=== PATIENT | female | born 1990 | race African-American/Black ===

== ENCOUNTER → 2023-06-11 | Outpatient (CLI) | payer MEDICARE ==
[2023-06-11 18:44] LABS: Basophils # (A) 0.04 X 10*3/uL (0.00-0.10); Basophils % (A) 0.4 %; Eosinophils # (A) 0.15 X 10*3/uL (0.04-0.35); Eosinophils % (A) 1.4 %; HCT 32.1 % (37.2-46.3); HGB 11.1 g/dL (12.0-15.0); Lymphocytes # (A) 2.89 X 10*3/uL (0.90-5.00); Lymphocytes % (A) 27.6 %; MCH 28.8 pg (27.0-32.0); MCHC 34.6 g/dL (32.0-37.0); MCV 83.2 FL (80.0-97.0); Mean Platelet Volume 11.9 FL (9.5-12.2); Monocytes # (A) 0.76 X 10*3/uL (0.20-1.00); Monocytes % (A) 7.2 %; NRBC Per 100 WBC 0 X 10*3/uL (0.00-0.01); Neutrophils # (A) 6.62 X 10*3/uL (1.80-7.70); Neutrophils % (A) 63.1 %; Platelet Count 208 X 10*3/uL (140-440); RBC 3.86 X 10*6/uL (4.10-5.20); RDW 14.7 % (11.5-14.5); WBC 10.49 X 10*3/uL (4.50-10.00)
[2023-06-11 19:09] LABS: % Iron Saturation 14.51 (12.00-45.00); Glucose 104 mg/dL (70-110); Iron 55 UG/DL (50-170); Total Iron Binding Capacity 379 UG/DL (228-460)
[2023-06-11 19:10] LABS: ALT 54 U/L (8-44); AST 25 U/L (13-35); Albumin 4.2 g/dL (3.8-4.9); Albumin/Globulin Ratio 1.31 Ratio (1.60-3.17); Alkaline Phosphatase 80 U/L (41-126); Calcium 10.2 mg/dL (8.7-10.3); Chloride 100 mmol/L (96-109); Ferritin 66.8 ng/mL (10.0-291.0); Globulin 3.2 g/dL (1.6-3.3); Sodium 134 mmol/L (135-145); T4, Free (Free Thyroxine) 2.26 ng/dL (0.80-1.80); Total Bilirubin 0.2 mg/dL (0.3-1.2); Total Protein 7.4 g/dL (6.2-8.2)
== END | disposition home or self-care (01) ==
LOC: LABWHC1 11:50
PROVIDERS: ATTEND Family Medicine
DX: Z33.1 Pregnant state, incidental (principal); N91.2 Amenorrhea, unspecified; E01.0 Iodine-deficiency related diffuse (endemic) goiter; E55.9 Vitamin D deficiency, unspecified; R53.81 Other malaise; R53.83 Other fatigue
CPT/HCPCS: 36415; 80053; 82306; 82728; 83540; 83550; 84439; 84443; 84702; 85025

== ENCOUNTER 2023-06-22 18:58 | Emergency (ER) | payer MEDICARE ==
[2023-06-22 20:06] LABS: Basophils % (A) 0 %; Eosinophils # (A) 0.4 k/uL (0-0.7); Eosinophils % (A) 3 %; HCT 36.5 % (34.0-46.0); HGB 12.1 gm/dL (11.4-16.0); Lymphocytes # (A) 2.5 k/uL (1.0-4.8); Lymphocytes % (A) 20 %; MCH 27.5 pg (25.0-35.0); MCHC 33.2 g/dL (31.0-37.0); MCV 82.9 fL (80.0-100.0); Mean Platelet Volume 9.7; Monocytes # (A) 0.5 k/uL (0-1.0); Monocytes % (A) 4 %; Neutrophils # (A) 9.1 k/uL (1.3-7.7); Neutrophils % (A) 72 %; Platelet Count 211 k/uL (150-450); RDW 13.6 % (11.5-15.5); WBC 12.6 k/uL (3.8-10.6)
[2023-06-22] MEDS: SODIUM CHLORIDE 0.9% 2,000 ML IV STA (20:08)
[2023-06-22 20:12] LABS: Appearance,Urine Clear (Clear); Bilirubin,Urine Negative (Negative); Blood,Urine Negative (Negative); Color,Urine Colorless; Glucose,Urine (UA) Negative (Negative); Ketones,Urine 1+ (Negative); Leukocyte Esterase,Urine Negative (Negative); Nitrite,Urine Negative (Negative); PH, Urine 6.5 (5.0-8.0); Protein,Urine Negative (Negative); Specific Gravity,Urine 1.008 (1.001-1.035); Urobilinogen,Urine <2.0 mg/dL (<2.0)
[2023-06-22 20:16] LABS: ALT 36 U/L (4-34); AST 24 U/L (14-36); African American GFR (CKD) >90 (>60 ml/min/1.73 sqM); Albumin 4.3 g/dL (3.5-5.0); Alkaline Phosphatase 80 U/L (38-126); Amylase 70 U/L (30-110); Anion Gap 10 mmol/L; Blood Urea Nitrogen 5 mg/dL (7-17); Calcium 9.7 mg/dL (8.4-10.2); Carbon Dioxide 21 mmol/L (22-30); Chloride 105 mmol/L (98-107); Glucose 97 mg/dL (74-99); Lipase 35 U/L (23-300); Magnesium 1.6 mg/dL (1.6-2.3); Non-African American GFR(CKD) >90 (>60 ml/min/1.73 sqM); Potassium 3.7 mmol/L (3.5-5.1); Sodium 136 mmol/L (137-145); Total Bilirubin 0.5 mg/dL (0.2-1.3)
[2023-06-22] MEDS: diphenhydrAMINE 50 MG/ML 1 ML VIAL IVP STA (20:41)
[2023-06-22] MEDS: METOCLOPRAMIDE 5 MG/ML 2 ML VIAL IVP STA (20:42)
[2023-06-22] MEDS: ACETAMINOPHEN IV (For NPO) 1,000 MG in EMPTY BAG 1 BAG IVPB STA (20:43)
--- NOTE | 2023-06-22 20:44 | US ---
EXAMINATION TYPE: US OB <= 14 wk twins DATE OF EXAM: 06/22/2023 COMPARISON: NONE CLINICAL INDICATION: Female, 32 years old with history of Abdominal pain in ; Pt states very nauseas and cannot keep anything down. Dehydrated and headache. . Hx of ectopic in 2010 EXAM PERFORMED: Transabdominal (TA) EXAM MEASUREMENTS: GESTATIONAL AGE / DATING Physician Established: Not yet established Dates by LMP: LMP unknown Dates by First Scan: No previous this is first scan ( Dates by Current Scan for Baby A: (12 weeks/0 days) EDC: 01/04/24 Dates by Current Scan for Baby B: (12 weeks/0 days) EDC: 01/04/24 MATERNAL ANATOMY Uterus: 11.6 x 9.3 x 8.1cm. Hypoechoic area seen in fundus measuring 2.9 x 3.6 x 2.7cm Right Ovary: 5.3 x 3.3 x 3.1cm. Cyst seen measuring 4.1 x 3.7 x 3.1cm Left Ovary: 2.2 x 1.6 x 1.4cm Post CDS / Adnexa: wnl Presence of free fluid: No Presence of corpus luteal cyst: No Presence of subchorionic bleed: No Presence of two separate gestational sacs: Yes GESTATION / SURVEY TWIN A CRL: 5.21cm (12wks/0days) MSD: Not measured Yolk Sac (normal less than 6mm): Not seen, placenta forming Heart Rate: 160 bpm Rhythm: Normal IUP: Viable IUP TWIN B CRL: 5.27cm (12wks/0days) MSD: Not measured Yolk Sac (normal less than 6mm): Not seen, placenta forming Heart Rate: 165 bpm Rhythm: Normal IUP: Viable IUP Date of LMP: unknown Beta HcG (if available): pending 2 live fetuses seen both measuring 12 weeks 0 days IMPRESSION: 2 live fetuses , both measuring 12 weeks 0 days. Consider further imaging dedicated imaging [address].
--- NOTE | 2023-06-22 21:02 | ED ---
Nausea/Vomiting/Diarrhea HPI - General Chief complaint: Nausea/Vomiting/Diarrhea Stated complaint: Nausea Time Seen by Provider: 06/22/23 19:27 Source: patient, RN notes reviewed Mode of arrival: ambulatory Limitations: no limitations - History of Present Illness Initial comments: This is a 32-year-old female who presents to the emergency department for nausea, vomiting, and headaches. Patient is approximately 12 weeks and . States that for the last several weeks she has been having persistent nausea and vomiting and is unable to keep anything down. In prior pregnancies she has done well with Zofran and [id number]-[id number] medication, however she just moved here from [place] and is waiting for her first [facility] appointment in the next couple of weeks. She has been trying [id number] regimens without any relief in symptoms. Over the last several days she has also started to develop a headache, which she believes may be from dehydration. Also reports lower abdominal pain. Denies any vaginal bleeding. MD complaint: nausea, vomiting, abdominal pain - Related Data Previous Rx's Medication Instructions Recorded Metoclopramide [Reglan] 10 mg PO Q6H PRN #30 tab 06/22/23 Ondansetron Odt [Zofran Odt] 4 mg PO Q8HR PRN #30 tab 06/22/23 Allergies Allergy/AdvReac Type Severity Reaction Status Date / Time promethazine [From Phenergan] Allergy Rash/Hives Verified 06/23/23 08:57 pineapple AdvReac Nausea & Verified 06/23/23 08:57 Vomiting Review of Systems ROS Statement: Those systems with pertinent positive or pertinent negative responses have been documented in the HPI. ROS Other: All systems not noted in ROS Statement are negative. Past Medical History Past Medical History: Thyroid Disorder History of Any Multi-Drug Resistant Organisms: None Reported Additional Past Surgical History / Comment(s): Ectopic 2010 Smoking Status: Never smoker Past Alcohol Use History: None Reported Past Drug Use History: None Reported General Exam Limitations: no limitations General appearance: alert, in no apparent distress Head exam: Present: atraumatic, normocephalic, normal inspection Respiratory exam: Present: normal lung sounds bilaterally. Absent: respiratory distress, wheezes, rales, rhonchi, stridor Cardiovascular Exam: Present: regular rate, normal rhythm, normal heart sounds. Absent: systolic murmur, diastolic murmur, rubs, gallop, clicks Neurological exam: Present: alert, oriented X3, CN II-XII intact Psychiatric exam: Present: normal affect, normal mood Skin exam: Present: warm, dry, intact, normal color. Absent: rash Course Vital Signs 06/22/23 06/22/23 19:07 23:13 Temperature 98 F 98.7 F Pulse Rate 89 80 Respiratory 22 18 Rate Blood Pressure 148/88 123/77 O2 Sat by Pulse 100 100 Oximetry Medical Decision Making - Medical Decision Making This is a 32 year old female who presents to the emergency department for nausea and vomiting in . Was pt. sent in by a medical professional or institution? @ -No Did you speak to anyone other than the patient for history? @ -No Did you review nursing and triage notes? @ -Yes, and I agree, it is accurate with regards to the patient's symptoms. Were old charts reviewed? @ -No Differential Diagnosis? @ -Differential Nausea and Vomiting: Gastroenteritis, cholecystitis, appendicitis, pancreatitis, migraine, benign positional vertigo, food borne illness, pyelonephritis, irritable bowel syndrome, influenza, Covid, GERD, incarcerated hernia, intestinal obstruction, this is not meant to be an all-inclusive list. EKG interpreted by me (3pts min.)? @ -Not obtained X-rays interpreted by me (1pt min.)? @ -Not obtained CT interpreted by me (1pt min.)? @ -Not obtained U/S interpreted by me (1pt. min.)? @ -OB US obtained. My interpretation identifies 2 live IUPs What testing was considered but not performed? (CT, X-rays, U/S, labs)? Why? @ -None What meds were considered but not given? Why? @ -None Did you discuss the management of the patient with other professionals? @ -No Did you reconcile home meds? @ -No Was smoking cessation discussed for >3mins.? @ -No Was critical care preformed (if so, how long)? @ -No Were there social determinants of health that impacted care today? How? (Homelessness, low income, unemployed, alcoholism, drug addiction, transportation, low edu. Level, literacy, decrease access to med. care, detention, rehab)? @ -No Was there de-escalation of care discussed even if they declined? (Discuss DNR or withdrawal of care, Hospice)? @ -No What co-morbidities impacted this encounter? (DM, HTN, Smoking, COPD, CAD, Cancer, CVA, Hep., AIDS, mental health diagnosis, sleep apnea, morbid obesity)? @ - Was patient admitted / discharged? @ -Discharged. Lab work demonstrates mild leukocytosis and was otherwise unremarkable. Urinalysis negative for signs of infection. ultrasound obtained demonstrating 2 live fetuses, both measuring 12 weeks. Findings reviewed with the patient. She was treated with IV fluids, Reglan, Ofirmev, Benadryl, and Caffeine for management of the headache and nausea. She had significant improvement in the headache and initial improvement in the nausea. Nausea did start to return afterwards and she was given a dose of Zofran. She had persistent improvement following the Zofran. She was able to tolerate oral intake afterwards and felt comfortable with discharge home at that time. Prescription for both Reglan and Zofran provided with dosing instructions reviewed in the event one of them is not effective. She is advised to slowly advance her diet as tolerated and remain well-hydrated. She will otherwise follow-up with her [facility]. Undiagnosed new problem with uncertain prognosis? @ -None Drug Therapy requiring intensive monitoring for toxicity (Heparin, Nitro, Insulin, Cardizem)? @ -None Were any procedures done? @ -None Diagnosis/symptom? @ -Nausea and vomiting, headache Acute, or Chronic, or Acute on Chronic? @ -Acute Uncomplicated (without systemic symptoms) or Complicated (systemic symptoms)? @ -Uncomplicated Side effects of treatment? @ -None Exacerbation, Progression, or Severe Exacerbation] @ -Not applicable Poses a threat to life or bodily function? @ -No Return precautions reviewed in depth, the patient is instructed to return to the emergency department with any new, worsening, or concerning symptoms. Patient verbalized understanding. This case was discussed in detail with the attending ED physician, Dr. Merchant. Presentation, findings, and treatment plan discussed in detail as well. - Lab Data Result diagrams: 06/22/23 19:59 06/22/23 19:59 Lab Results 06/22/23 06/22/23 06/22/23 Range/Units 19:59 19:59 19:59 WBC 12.6 H (3.8-10.6) k/uL RBC 4.40 (3.80-5.40) m/uL Hgb 12.1 (11.4-16.0) gm/dL Hct 36.5 (34.0-46.0) % MCV 82.9 (80.0-100.0) fL MCH 27.5 (25.0-35.0) pg MCHC 33.2 (31.0-37.0) g/dL RDW 13.6 (11.5-15.5) % Plt Count 211 (150-450) k/uL MPV 9.7 Neutrophils % 72 % Lymphocytes % 20 % Monocytes % 4 % Eosinophils % 3 % Basophils % 0 % Neutrophils # 9.1 H (1.3-7.7) k/uL Lymphocytes # 2.5 (1.0-4.8) k/uL Monocytes # 0.5 (0-1.0) k/uL Eosinophils # 0.4 (0-0.7) k/uL Basophils # 0.0 (0-0.2) k/uL Sodium 136 L (137-145) mmol/L Potassium 3.7 (3.5-5.1) mmol/L Chloride 105 (98-107) mmol/L Carbon Dioxide 21 L (22-30) mmol/L Anion Gap 10 mmol/L BUN 5 L (7-17) mg/dL Creatinine 0.36 L (0.52-1.04) mg/dL Est GFR (CKD-EPI)AfAm >90 (>60 ml/min/1.73 sqM) Est GFR (CKD-EPI)NonAf >90 (>60 ml/min/1.73 sqM) Glucose 97 (74-99) mg/dL Calcium 9.7 (8.4-10.2) mg/dL Magnesium 1.6 (1.6-2.3) mg/dL Total Bilirubin 0.5 (0.2-1.3) mg/dL AST 24 (14-36) U/L ALT 36 H (4-34) U/L Alkaline Phosphatase 80 (38-126) U/L Total Protein 8.0 (6.3-8.2) g/dL Albumin 4.3 (3.5-5.0) g/dL Amylase 70 (30-110) U/L Lipase 35 (23-300) U/L HCG, Quant >723842.0 mIU/mL Urine Color Colorless Urine Appearance Clear (Clear) Urine pH 6.5 (5.0-8.0) Ur Specific [place] 1.008 (1.001-1.035) Urine Protein Negative (Negative) Urine Glucose (UA) Negative (Negative) Urine Ketones 1+ H (Negative) Urine Blood Negative (Negative) Urine Nitrite Negative (Negative) Urine Bilirubin Negative (Negative) Urine Urobilinogen <2.0 (<2.0) mg/dL Ur Leukocyte Esterase Negative (Negative) - Radiology Data Radiology results: report reviewed, image reviewed Disposition Clinical Impression: Nausea and vomiting, Headache, Abdominal pain during Disposition: HOME SELF-CARE Instructions (If sedation given, give patient instructions): Acute Nausea and Vomiting (ED) Additional Instructions: Return to the emergency department with any new, worsening, or concerning symptoms. You can take the Zofran up to every 8 hours and the Reglan up to every 6 hours as needed for nausea and vomiting. You can take Tylenol and caffeine for management of the headaches. Slowly advance your diet as tolerated and remain well-hydrated. Follow up with your [facility]. Prescriptions: Metoclopramide [Reglan] 10 mg PO Q6H PRN #30 tab PRN Reason: Nausea And Vomiting Ondansetron Odt [Zofran Odt] 4 mg PO Q8HR PRN #30 tab PRN Reason: Nausea And Vomiting Is patient prescribed a controlled substance at d/c from ED?: No Referrals: Tadeo Bailey III, MD [Primary Care Provider] - 1-2 days Time of Disposition: 23:00
[2023-06-22 21:34] LABS: HCG,Quantitative Serum >225000.0 mIU/mL
[2023-06-22] MEDS: CAFFEINE SODIUM BENZOATE IVPB ONE (21:36)
[2023-06-22] MEDS: SODIUM CHLORIDE 0.9% IVPB ONE (21:36)
[2023-06-22] MEDS: ONDANSETRON 4 MG/2 ML VIAL IVP STA (21:55)
[2023-06-22] MEDS: ONDANSETRON 4 MG ODT STARTER PACK 2 TAB BTL PO STA (22:31)
[2023-06-22 23:44] VITALS: BP 123/77; PULSE 80; RESP 18; TEMP 98.7
== END 2023-06-22 23:34 | disposition home or self-care (01) ==
LOC: EC 18:58
DX: O21.9 Vomiting of pregnancy, unspecified (principal); O26.891 Other specified pregnancy related conditions, first trimester; O99.891 Other specified diseases and conditions complicating pregnancy; R51.9 Headache, unspecified; R10.30 Lower abdominal pain, unspecified; Z88.8 Allergy status to other drugs, medicaments and biological substances; Z91.018 Allergy to other foods; Z3A.12 12 weeks gestation of pregnancy
CPT/HCPCS: 36415; 80053; 82150; 83690; 83735; 85025; 81003; 84702; 76801; 76802; 99284; 96365; 96366; 96375 ×4; 96361; J1200; J2765; J2405; J0131; S0119

== ENCOUNTER 2023-06-23 08:52 | Emergency (ER) | payer MEDICARE ==
--- NOTE | 2023-06-23 09:32 | ED ---
General Adult HPI - General Chief complaint: Vaginal Bleeding Stated complaint: poss Miscarriage, 12wks w/Twins Time Seen by Provider: 06/23/23 09:06 Source: patient, RN notes reviewed, old records reviewed Mode of arrival: ambulatory Limitations: no limitations - History of Present Illness Initial comments: Patient is a pleasant 32-year-old female presenting to the emergency department with concerns for vaginal bleeding. Patient was in the emergency department yesterday with nausea and vomiting. Patient states that did improve with medications and is not nauseated at this time. Patient states this morning she had some mild cramping. Following this she had a large amount of blood while using the toilet from the vaginal region. Patient states this has again improved and now is only minimal spotting. Patient states she also has continued minimal cramping at this time. No history of similar symptoms previously. Patient is 12 weeks gravid with twin gestation. - Related Data Previous Rx's Medication Instructions Recorded Metoclopramide [Reglan] 10 mg PO Q6H PRN #30 tab 06/22/23 Ondansetron Odt [Zofran Odt] 4 mg PO Q8HR PRN #30 tab 06/22/23 Allergies Allergy/AdvReac Type Severity Reaction Status Date / Time promethazine [From Phenergan] Allergy Rash/Hives Verified 06/23/23 08:57 pineapple AdvReac Nausea & Verified 06/23/23 08:57 Vomiting Review of Systems ROS Statement: Those systems with pertinent positive or pertinent negative responses have been documented in the HPI. ROS Other: All systems not noted in ROS Statement are negative. Constitutional: Denies: fever Eyes: Denies: eye pain ENT: Denies: ear pain Respiratory: Denies: cough Cardiovascular: Denies: chest pain Endocrine: Denies: fatigue Gastrointestinal: Reports: as per HPI, diarrhea Genitourinary: Reports: as per HPI. Denies: dysuria Musculoskeletal: Denies: back pain Skin: Denies: rash Neurological: Denies: weakness Past Medical History Past Medical History: Thyroid Disorder History of Any Multi-Drug Resistant Organisms: None Reported Additional Past Surgical History / Comment(s): Ectopic 2010 Smoking Status: Never smoker Past Alcohol Use History: None Reported Past Drug Use History: None Reported General Exam Limitations: no limitations General appearance: alert, in no apparent distress Head exam: Present: normocephalic Eye exam: Present: normal appearance Neck exam: Present: normal inspection Respiratory exam: Present: normal lung sounds bilaterally Cardiovascular Exam: Present: regular rate, normal rhythm GI/Abdominal exam: Present: soft. Absent: distended, tenderness, guarding, rebound, rigid External exam: Present: normal external exam (RN present during exam) Speculum exam: Present: vaginal bleeding (Minimal) By manual exam: Present: normal by manual exam Extremities exam: Present: normal inspection Neurological exam: Present: alert Psychiatric exam: Present: normal affect, normal mood Skin exam: Present: normal color Course Vital Signs 06/23/23 06/23/23 08:54 11:25 Temperature 97.7 F 98.3 F Pulse Rate 102 H 81 Respiratory 20 18 Rate Blood Pressure 146/100 126/81 O2 Sat by Pulse 98 99 Oximetry Medical Decision Making - Medical Decision Making Was pt. sent in by a medical professional or institution (, PA, [facility] [employer], urgent care, hospital, or long-term...) When possible be specific @ -No Did you speak to anyone other than the patient for history (EMS, parent, family, police, friend...)? What history was obtained from this source @ -No Did you review nursing and triage notes (agree or disagree)? Why? @ -I reviewed and agree with nursing and triage notes Were old charts reviewed (outside hosp., previous admission, EMS record, old EKG, old radiological studies, urgent care reports/EKG's, long-term records)? Report findings @ -Previous ultrasound reviewed as well as labs Differential Diagnosis (chest pain, altered mental status, abdominal pain women, abdominal pain men, vaginal bleeding, weakness, fever, dyspnea, syncope, headache, dizziness, GI bleed, back pain, seizure, CVA, palpatations, mental health, musculoskeletal)? @ -Differential Vaginal Bleeding: Spontaneous , threatened , molar , ectopic , bloody show, incompetent cervix, abruptioplacenta, placenta previa, uterine rupture, dysfunctional uterine bleeding, hemorrhage, uterine fibroids, this is not meant to be an all-inclusive list. EKG interpreted by me (3pts min.). @ -As above X-rays interpreted by me (1pt min.). @ -None done CT interpreted by me (1pt min.). @ -None done U/S interpreted by me (1pt. min.). @ -Ultrasound shows twin gestation. Subchorionic hemorrhage What testing was considered but not performed or refused? (CT, X-rays, U/S, labs)? Why? @ -None What meds were considered but not given or refused? Why? @ -None Did you discuss the management of the patient with other professionals (professionals i.e. , PA, [employer], lab, RT, psych nurse, vp digital marketing social media and crm, tape cutting machine operator, teacher, sheriff officer, director case management)? Give summary @ -No Was smoking cessation discussed for >3mins.? @ -No Was critical care preformed (if so, how long)? @ -No Were there social determinants of health that impacted care today? How? (Homelessness, low income, unemployed, alcoholism, drug addiction, transportation, low edu. Level, literacy, decrease access to med. care, fci, rehab)? @ -No Was there de-escalation of care discussed even if they declined (Discuss DNR or withdrawal of care, Hospice)? DNR status @ -No What co-morbidities impacted this encounter? (DM, HTN, Smoking, COPD, CAD, Cancer, CVA, ARF, Chemo, Hep., AIDS, mental health diagnosis, sleep apnea, morb id obesity)? @ -None Was patient admitted / discharged? Hospital course, mention meds given and rou te, prescriptions, significant lab abnormalities, going to OR and other pertinent info. @ -Patient reevaluated and resting comfortably in bed. Patient still not having any significant bleeding or discomfort. Patient is updated on results and need for follow-up. Patient states she does have an appointment with [facility] in [place]. Undiagnosed new problem with uncertain prognosis? @ -No Drug Therapy requiring intensive monitoring for toxicity (Heparin, Nitro, Insulin, Cardizem)? @ -No Were any procedures done? @ -No Diagnosis/symptom? @ -Threatened miscarriage Acute, or Chronic, or Acute on Chronic? @ -Acute Uncomplicated (without systemic symptoms) or Complicated (systemic symptoms)? @ -Default Side effects of treatment? @ -No Exacerbation, Progression, or Severe Exacerbation? @ -No Poses a threat to life or bodily function? How? (Chest pain, [place], [place], pneumonia, PE, COPD, DKA, ARF, appy, cholecystitis, CVA, Diverticulitis, Homicidal, Suicidal, threat to staff... and all critical care pts) @ -No - Lab Data Result diagrams: 06/23/23 09:39 06/23/23 09:39 Lab Results 06/23/23 06/23/23 06/23/23 Range/Units 09:39 09:39 09:39 WBC 8.6 (3.8-10.6) k/uL RBC 4.06 (3.80-5.40) m/uL Hgb 11.2 L (11.4-16.0) gm/dL Hct 33.9 L (34.0-46.0) % MCV 83.5 (80.0-100.0) fL MCH 27.7 (25.0-35.0) pg MCHC 33.1 (31.0-37.0) g/dL RDW 13.6 (11.5-15.5) % Plt Count 187 (150-450) k/uL MPV 10.0 Neutrophils % 78 % Lymphocytes % 14 % Monocytes % 5 % Eosinophils % 1 % Basophils % 0 % Neutrophils # 6.7 (1.3-7.7) k/uL Lymphocytes # 1.2 (1.0-4.8) k/uL Monocytes # 0.4 (0-1.0) k/uL Eosinophils # 0.1 (0-0.7) k/uL Basophils # 0.0 (0-0.2) k/uL PT 10.0 (10.0-12.5) sec INR 0.9 (<1.2) APTT 23.8 (22.0-30.0) sec Sodium 136 L (137-145) mmol/L Potassium 3.7 (3.5-5.1) mmol/L Chloride 109 H (98-107) mmol/L Carbon Dioxide 14 L (22-30) mmol/L Anion Gap 13 mmol/L BUN 4 L (7-17) mg/dL Creatinine 0.31 L (0.52-1.04) mg/dL Est GFR (CKD-EPI)AfAm >90 (>60 ml/min/1.73 sqM) Est GFR (CKD-EPI)NonAf >90 (>60 ml/min/1.73 sqM) Glucose 176 H (74-99) mg/dL Calcium 9.2 (8.4-10.2) mg/dL Blood Type Blood Type Recheck Bld Type Recheck Status 06/23/23 Range/Units 09:40 WBC (3.8-10.6) k/uL RBC (3.80-5.40) m/uL Hgb (11.4-16.0) gm/dL Hct (34.0-46.0) % MCV (80.0-100.0) fL MCH (25.0-35.0) pg MCHC (31.0-37.0) g/dL RDW (11.5-15.5) % Plt Count (150-450) k/uL MPV Neutrophils % % Lymphocytes % % Monocytes % % Eosinophils % % Basophils % % Neutrophils # (1.3-7.7) k/uL Lymphocytes # (1.0-4.8) k/uL Monocytes # (0-1.0) k/uL Eosinophils # (0-0.7) k/uL Basophils # (0-0.2) k/uL PT (10.0-12.5) sec INR (<1.2) APTT (22.0-30.0) sec Sodium (137-145) mmol/L Potassium (3.5-5.1) mmol/L Chloride (98-107) mmol/L Carbon Dioxide (22-30) mmol/L Anion Gap mmol/L BUN (7-17) mg/dL Creatinine (0.52-1.04) mg/dL Est GFR (CKD-EPI)AfAm (>60 ml/min/1.73 sqM) Est GFR (CKD-EPI)NonAf (>60 ml/min/1.73 sqM) Glucose (74-99) mg/dL Calcium (8.4-10.2) mg/dL Blood Type O Positive Blood Type Recheck No Previous Record Bld Type Recheck Status ABR ONLY Disposition Clinical Impression: Threatened miscarriage Disposition: HOME SELF-CARE Condition: Stable Instructions (If sedation given, give patient instructions): Threatened Miscarriage (ED) Additional Instructions: Please do follow-up with your primary care physician and [facility] in the next 1 or 2 days for recheck. Return for increased plane, bleeding, vomiting or diarrhea, worsening symptoms or other concerns. Is patient prescribed a controlled substance at d/c from ED?: No Referrals: Tadeo Bailey III, MD [Primary Care Provider] - 1-2 days Heidi Hernandez DO [Doctor of Osteopathic Medicine] - 1-2 days Time of Disposition: 11:39
[2023-06-23 10:02] LABS: Basophils % (A) 0 %; Eosinophils # (A) 0.1 k/uL (0-0.7); Eosinophils % (A) 1 %; HCT 33.9 % (34.0-46.0); HGB 11.2 gm/dL (11.4-16.0); Lymphocytes # (A) 1.2 k/uL (1.0-4.8); Lymphocytes % (A) 14 %; MCH 27.7 pg (25.0-35.0); MCHC 33.1 g/dL (31.0-37.0); MCV 83.5 fL (80.0-100.0); Monocytes # (A) 0.4 k/uL (0-1.0); Monocytes % (A) 5 %; Neutrophils # (A) 6.7 k/uL (1.3-7.7); Neutrophils % (A) 78 %; Platelet Count 187 k/uL (150-450); RBC 4.06 m/uL (3.80-5.40); RDW 13.6 % (11.5-15.5); WBC 8.6 k/uL (3.8-10.6)
[2023-06-23 10:27] LABS: African American GFR (CKD) >90 (>60 ml/min/1.73 sqM); Anion Gap 13 mmol/L; Blood Urea Nitrogen 4 mg/dL (7-17); Calcium 9.2 mg/dL (8.4-10.2); Carbon Dioxide 14 mmol/L (22-30); Chloride 109 mmol/L (98-107); Glucose 176 mg/dL (74-99); Non-African American GFR(CKD) >90 (>60 ml/min/1.73 sqM); Potassium 3.7 mmol/L (3.5-5.1); Sodium 136 mmol/L (137-145)
[2023-06-23 10:29] LABS: INR 0.9 (<1.2); Partial Thromboplastin Time 23.8 sec (22.0-30.0)
--- NOTE | 2023-06-23 11:17 | US ---
EXAMINATION TYPE: US OB <= 14 wk twins DATE OF EXAM: 06/23/2023 COMPARISON: US 06/22/2023, 1 day prior CLINICAL INDICATION: Female, 32 years old with history of bleeding; Bright red heavy bleeding x 1 danielle r. Spotting now. Hx 1 , 1 ectopic , tubal ligation. A1. EXAM PERFORMED: Transabdominal (TA) EXAM MEASUREMENTS: GESTATIONAL AGE / DATING Physician Established: Not yet established Dates by LMP: Unknown Dates by First Scan: (12 weeks/1 day) EDC: 01/04/2024 Dates by Current Scan for Baby A: (11 weeks/4 days) EDC: 01/08/2024 Dates by Current Scan for Baby B: (12 weeks/0 days) EDC: 01/05/2024 MATERNAL ANATOMY Uterus: 13.8 x 10.7 x 9.2 cm. Hypoechoic, solid appearing area seen in fundus measurin.3 x 3.6 x 2.7 cm. Right Ovary: 4.6 x 4.0 x 3.4 cm. Anechoic area seen: 4.3 x 3.7 x 2.9 cm. *Enlarged ovary, arterial a nd venous flow shown. Left Ovary: 2.8 x 1.6 x 1.7 cm. Appears wnl Post CDS / Adnexa: Fluid seen in CDS. Presence of free fluid: Yes, fluid seen in CDS. Presence of corpus luteal cyst: No Presence of subchorionic bleed: Hypoechoic area seen uterus right adjacent to baby B gestational sac: 2.6 x 1.9 x 1.7 cm. *Additional hypoechoic area seen inferior to baby A gestational sac: 0.8 x 3.5 x 2.5 cm. Presence of two separate gestational sacs: Yes Baby A sac closer to internal os. GESTATION / SURVEY TWIN A CRL: 4.8 cm (11 wks/4 days) MSD: Not measured Yolk Sac (normal less than 6mm): Not seen Heart Rate: 167 bpm Rhythm: Normal IUP: Viable IUP Nuchal Translucency 10-14wks (normal less than 3mm): Unable to visualize TWIN B CRL: 5.3 cm (12 wks/0 days) MSD: Not measured Yolk Sac (normal less than 6mm): Not seen Heart Rate: 168 bpm Rhythm: Normal IUP: Viable IUP Nuchal Translucency 10-14wks (normal less than 3mm): Unable to visualize Date of LMP: Unknown Beta HcG (if available): Not available IMPRESSION: 1. Twin live intrauterine gestation ultrasound age 12 weeks 0 days for twin B and 11 weeks 4 days fo r twin A. Additional information as described above. 2. Small subchorionic hemorrhage adjacent to twin B.
[2023-06-23] MEDS: SODIUM CHLORIDE 0.9% 1,000 ML IV STA (11:34)
[2023-06-23 12:06] VITALS: RESP 18
[2023-06-23 12:54] VITALS: BP 128/76; PULSE 82; TEMP 98.1
[2023-06-24 13:10] LABS: N. gonorrhoeae,PCR Negative (Negative)
[2023-06-24 13:15] LABS: C. trachomatis,PCR Negative (Negative)
== END 2023-06-23 12:39 | disposition home or self-care (01) ==
LOC: EC 08:52
DX: O20.0 Threatened abortion (principal); Z91.018 Allergy to other foods; Z88.8 Allergy status to other drugs, medicaments and biological substances; Z3A.12 12 weeks gestation of pregnancy
CPT/HCPCS: 36415; 76801; 76802; 80048; 85025; 85610; 85730; 86900; 86901; 87070; 87491; 87591; 87808; 96360; 99285